=== PATIENT | male | born 1970 | race Hispanic/Latino ===

== ENCOUNTER 2024-12-07 09:32 | Outpatient (CLI) | payer OTHER, SELFPAY | END 2024-12-07 09:33 | disposition home or self-care (01) | LOC: ULT 09:32 | PROVIDERS: ATTEND Nurse Practitioner Family | DX: I10 Essential (primary) hypertension (principal); K76.0 Fatty (change of) liver, not elsewhere classified; R16.0 Hepatomegaly, not elsewhere classified; K76.89 Other specified diseases of liver | CPT/HCPCS: 76705 ==